=== PATIENT | female | born 1995 | race Two or more races ===

== ENCOUNTER 2021-01-20 18:05 | Observation (INO) | payer MEDICAID, OTHER ==
[2021-01-20] MEDS ORDERED: PREN-96 PO (19:18)
== END 2021-01-20 19:25 | disposition home or self-care (01) ==
LOC: LDRP 18:05
PROVIDERS: ADMIT Obstetrics & Gynecology; ATTEND Obstetrics & Gynecology
DX: O99.891 Other specified diseases and conditions complicating pregnancy (principal); M54.9 Dorsalgia, unspecified; O26.892 Other specified pregnancy related conditions, second trimester; R10.9 Unspecified abdominal pain; N89.8 Other specified noninflammatory disorders of vagina; Z3A.21 21 weeks gestation of pregnancy
CPT/HCPCS: 59025; 81002; 94760; G0378; G0379

== ENCOUNTER 2021-03-14 13:56 | Emergency (ER) | payer MEDICAID ==
[~2021-03-14] VITALS: Ht 162.6 cm; Wt 70.3 kg
[2021-03-14 13:56] VITALS: BP 106/60
[~2021-03-14 13:56] MED LIST: PREN-96 PO
== END 2021-03-14 15:19 | disposition left against medical advice (07) ==
LOC: ER 13:56
DX: S80.861A Insect bite (nonvenomous), right lower leg, initial encounter (principal); Z53.21 Procedure and treatment not carried out due to patient leaving prior to being seen by health care provider; W57.XXXA Bitten or stung by nonvenomous insect and other nonvenomous arthropods, initial encounter; Y93.89 Activity, other specified; Y92.89 Other specified places as the place of occurrence of the external cause; Y99.8 Other external cause status

== ENCOUNTER 2021-04-22 18:15 | Observation (INO) | payer MEDICAID ==
[~2021-04-22] VITALS: Ht 160 cm; Wt 73.9 kg
[2021-04-22] MEDS ORDERED: LACTATED RINGER'S 1,000 ML IV ONE (19:00)
[2021-04-22] MEDS: TERBUTALINE SULFATE 1 MG/ML 1ML VIAL SC SCH ×2 (19:22→20:34)
[2021-04-22] MEDS: LACTATED RINGER'S 1,000 ML IV SCH ×2 (20:57→22:10)
[2021-04-22] MEDS ORDERED: ALUM & MAG HYDROX-SIMETH LIQ(MAALOX) 30 ML PO ONE (21:00)
== END 2021-04-22 23:14 | disposition home or self-care (01) ==
LOC: LDRP 18:15
PROVIDERS: ADMIT Obstetrics & Gynecology; ATTEND Obstetrics & Gynecology
DX: O60.03 Preterm labor without delivery, third trimester (principal); O26.853 Spotting complicating pregnancy, third trimester; O62.9 Abnormality of forces of labor, unspecified; O26.893 Other specified pregnancy related conditions, third trimester; N89.8 Other specified noninflammatory disorders of vagina; R10.9 Unspecified abdominal pain; Z3A.33 33 weeks gestation of pregnancy
CPT/HCPCS: 59025; 76805; 76817; 81002; 87210; 94760; 96360; 96361; 96372; G0378; J3105